=== PATIENT | female | born 1960 | race Two or more races ===

== ENCOUNTER 2016-09-20 23:28 | Emergency (ER) | payer MEDICAID ==
[~2016-09-20] VITALS: Ht 175.3 cm; Wt 65.8 kg
[2016-09-21] MEDS ORDERED: cloNIDine 0.2 MG/24 HR PAT TD ONE (00:15)
[2016-09-21] MEDS ORDERED: LORazepam 2MG/ML-1ML VIAL IV ONE (01:00)
[2016-09-21] MEDS ORDERED: LISINOPRIL 20 MG TAB PO ONE (01:00)
[2016-09-21 01:19] LABS: Basophils # (auto) 0.1 uL; Eosinophils # (auto) 0.2 uL; Eosinophils % (auto) 2.4 % (0.0-7.0); Hematocrit 41.6 % (36.0-46.0); Hemoglobin 13.8 g/dL (12.2-16.2); Lymphocytes # (auto) 2.4 uL; Lymphocytes % (auto) 36.6 % (10.0-50.0); Mean Corpuscular Hemoglobin 30.5 pg (28.0-32.0); Mean Corpuscular Hgb Conc. 33.1 g/dL (32.0-36.0); Mean Corpuscular Volume 92.1 fL (80.0-100.0); Mean Platelet Volume 7.7 fL (7.4-10.4); Monocytes # (auto) 0.5 uL; Neutrophils # (auto) 3.3 uL; Platelet Count (auto) 243 10^3/uL (140-450); White Blood Cell 6.5 10^3/uL (4.4-10.8)
[2016-09-21 01:19] LABS: Urine RBC None Seen /hpf (0 - 4)
[2016-09-21 01:31] LABS: Albumin 3.6 g/dL (3.4-5.0); BUN/Creatinine Ratio 15.1; Calcium 9.2 mg/dL (8.5-10.1); Potassium 3.8 mmol/L (3.5-5.1)
[2016-09-21 01:33] LABS: Bilirubin, Total 0.5 mg/dL (0.2-1.0); Total Protein 7.5 g/dL (6.4-8.2)
[2016-09-21 01:36] LABS: Urine Bilirubin Negative (Negative); Urine Blood Negative /uL (Negative); Urine Color Colorless (Yellow); Urine Glucose Normal (Normal); Urine Ketone Negative (Negative); Urine Nitrite Negative (Negative); Urine Squamous Epithelial Cell FEW /hpf (<5); Urine Urobilinogen Normal (Negative); Urine pH 6.5 (5.0-8.0)
[2016-09-21 02:40] VITALS: BP 131/88
== END 2016-09-21 02:46 | disposition home or self-care (01) ==
LOC: EDUNIT# 23:28 → EDBD 23:28 → ER 23:42
DX: I10 Essential (primary) hypertension (principal); K21.9 Gastro-esophageal reflux disease without esophagitis; J45.909 Unspecified asthma, uncomplicated
CPT/HCPCS: 36415; 80053; 81001; 84484; 85025; 93005; 96374; 99285; J2060

== ENCOUNTER 2017-03-12 07:19 | Emergency (ER) | payer MEDICAID ==
[~2017-03-12] VITALS: Ht 162.6 cm; Wt 69.9 kg
[2017-03-12 07:35] VITALS: BP 143/95
== END 2017-03-12 08:21 | disposition home or self-care (01) ==
LOC: ER 07:23
DX: B86 Scabies (principal); J45.909 Unspecified asthma, uncomplicated; I10 Essential (primary) hypertension; K21.9 Gastro-esophageal reflux disease without esophagitis

== ENCOUNTER 2017-03-16 22:31 | Emergency (ER) | payer MEDICAID ==
[~2017-03-16] VITALS: Ht 162.6 cm; Wt 69.9 kg
[2017-03-17 00:07] VITALS: BP 176/103
[2017-03-17] MEDS ORDERED: FLUCONAZOLE 100 MG TAB PO ONE (01:00)
== END 2017-03-17 01:00 | disposition home or self-care (01) ==
LOC: ER 22:36
DX: B35.4 Tinea corporis (principal); K21.9 Gastro-esophageal reflux disease without esophagitis; I10 Essential (primary) hypertension; J45.909 Unspecified asthma, uncomplicated

== ENCOUNTER 2018-03-17 20:03 | Emergency (ER) | payer MEDICAID ==
[~2018-03-17] VITALS: Ht 162.6 cm; Wt 65.8 kg
[~2018-03-17 20:03] MED LIST: ATEN100T PO; FENO1TAB42 PO; HYDR12.56 PO; LISI-646 PO; METF-370 PO; OMEP20CA74 OR; TRIA0.1P11 TOP
[2018-03-17 20:15] VITALS: BP 190/103
[2018-03-17] MEDS ORDERED: cloNIDine HCL 0.1 MG TAB ONE (20:22)
[2018-03-17] MEDS ORDERED: cloNIDine HCL 0.1 MG TAB PO ONE (20:30)
== END 2018-03-17 21:31 | disposition left against medical advice (07) ==
LOC: ER 20:03
DX: I10 Essential (primary) hypertension (principal); Z53.21 Procedure and treatment not carried out due to patient leaving prior to being seen by health care provider
CPT/HCPCS: 70450; 93005

== ENCOUNTER 2018-11-20 08:09 | Emergency (ER) | payer MEDICAID ==
[~2018-11-20] VITALS: Ht 162.6 cm; Wt 70.3 kg
[2018-11-20] MEDS ORDERED: SODIUM CHLORIDE 0.9% 1,000 ML IV ONE ×2 (08:38)
[2018-11-20] MEDS ORDERED: KETOROLAC TROMETH 30 MG/ML 1ML VIAL IV ONE (08:45)
[2018-11-20 09:25] LABS: Basophils # (auto) 0.1 uL; Basophils % (auto) 1.1 % (0.0-2.0); Eosinophils # (auto) 0.1 uL; Eosinophils % (auto) 0.7 % (0.0-7.0); Hematocrit 43.1 % (36.0-46.0); Hemoglobin 14.9 g/dL (12.2-16.2); Lymphocytes # (auto) 1.6 uL; Lymphocytes % (auto) 20.5 % (10.0-50.0); Mean Corpuscular Hemoglobin 32.5 pg (28.0-32.0); Mean Corpuscular Hgb Conc. 34.6 g/dL (32.0-36.0); Monocytes # (auto) 0.4 uL; Monocytes % (auto) 5.2 % (0.0-12.0); Neutrophils # (auto) 5.6 uL; Neutrophils % (auto) 72.5 % (37.0-80.0); Nucleated Red Blood Cells % 0.1 %; Platelet Count (auto) 243 10^3/uL (140-450); Red Blood Cells 4.58 10^6/uL (4.0-5.20); Red Cell Distribution Width 12.5 % (11.8-14.3); White Blood Cell 7.8 10^3/uL (4.4-10.8)
[2018-11-20 09:25] LABS: Urine Bacteria NONE SEEN /hpf (None Seen); Urine Blood Negative /uL (Negative); Urine Specific Gravity 1.013 (1.001-1.035); Urine WBC <1 /hpf (0 - 5)
[2018-11-20 09:36] LABS: Albumin 4.2 g/dL (3.4-5.0); Calcium 9.3 mg/dL (8.5-10.1); Potassium 3.5 mmol/L (3.5-5.1)
[2018-11-20 09:51] LABS: BUN/Creatinine Ratio 9.1; Bilirubin, Total 0.7 mg/dL (0.2-1.0); Total Protein 8.2 g/dL (6.4-8.2)
[2018-11-20] MEDS ORDERED: ONDANSETRON HCL 4 MG/2 ML VIAL IV ONE ×2 (11:45→12:15)
[2018-11-20] MEDS ORDERED: NALBUPHINE HCL 10 MG/1ml INJECTION IV ONE ×2 (11:45→12:15)
[2018-11-20] MEDS ORDERED: PROMETHAZINE HCL 25 MG/ML 1ML IV ONE (13:30)
[2018-11-20 14:41] VITALS: BP 138/93
== END 2018-11-20 14:41 | disposition home or self-care (01) ==
LOC: ER 08:09 → EDBD 08:09 → ER 14:41
DX: R10.11 Right upper quadrant pain (principal); J45.909 Unspecified asthma, uncomplicated; I11.0 Hypertensive heart disease with heart failure; I50.9 Heart failure, unspecified; K21.9 Gastro-esophageal reflux disease without esophagitis; E78.5 Hyperlipidemia, unspecified; Z90.710 Acquired absence of both cervix and uterus
CPT/HCPCS: 36415; 74176; 76705; 80053; 81001; 82962; 84484; 85025; 93005; 96361; 96374; 96375; 99284; J1885; J2300; J2405; J7030